=== PATIENT | male | born 1975 | race Caucasian/White ===

== ENCOUNTER 2018-07-29 15:44 | Emergency (ER) | payer MEDICAID, OTHER ==
[~2018-07-29] VITALS: Ht 190.5 cm; Wt 66.7 kg
[2018-07-29 16:45] VITALS: BP 114/88
--- NOTE | 2018-07-29 16:45 | Diagnostic Imaging Report ---
Indication: Right wrist injury. 3 views of the right wrist show no fracture, dislocation or other acute abnormalities. Impression: Negative right wrist. Dictated by: Dictated on workstation # [id number]
--- NOTE | 2018-07-29 17:21 | ED Upper Extremity ---
General Chief Complaint: Upper Extremity Stated Complaint: R WRIST PAIN Nursing Triage Note: Was lifting an engine last night and later started having shooting pain in R wrist. Is more painful with movement. Has been wearing a wrist brace. Has not taken any pain medicine or used ice. Nursing Sepsis Screen: No Definite Risk Source: patient Exam Limitations: no limitations History of Present Illness Date Seen by Provider: Jul 29, 2018 Time Seen by Provider: 16:00 Initial Comments 42-year-old right-handed male presents with right wrist strain after lifting a heavy automobile engine yesterday. Patient does not report injury or pain complain at time lifting but states reports pain shortly thereafter with wrist supination and movement. Patient's pain wearing Velcro splint today with limited relief. No pain medication, ice or anti-inflammatories taken. No other acute symptoms or complaints. Onset: yesterday Pain/Injury Location: right wrist Method of Injury: twisted Modifying Factors: Improves With Immobilization Associated Symptoms: no motor weakness or loss of sensation Allergies and Home Medications Allergies Coded Allergies: No Known Drug Allergies (Unverified , 07/29/18) Patient Home Medication List Home Medication List Reviewed: Yes Review of Systems Constitutional: no symptoms reported Musculoskeletal: joint pain, joint swelling Past Hlbilpa-Cafpqb-Qigavc Hx Patient Social History Alcohol Use: Denies Use Recreational Drug Use: No Smoking Status: Current Everyday Smoker Recent Foreign Travel: No Contact w/Someone Who Travel: No Recent Infectious Disease Expo: No Recent Hopitalizations: No Physical Abuse: No Sexual Abuse: No Mistreated: No Seasonal Allergies Seasonal Allergies: No Past Medical History Surgeries: No Respiratory: Yes (possible emphysema) Emphysema Cardiac: No Neurological: No Genitourinary: No Gastrointestinal: No Musculoskeletal: Yes Chronic Back Pain Endocrine: No HEENT: No Cancer: No Psychosocial: No Integumentary: No Blood Disorders: No Adverse Reaction/Blood Tranf: No Physical Exam Vital Signs Vital Signs - First Documented 07/29/18 15:56 Temp 98.8 Pulse 80 Resp 14 B/P (MAP) 136/79 (98) Pulse Ox 99 Capillary Refill : Less Than 3 Seconds Height, Weight, BMI Height: 6'3.00" Weight: 147lbs. oz. [id number]; BMI Method:Stated General Appearance: WD/WN, no apparent distress, moderate distress, severe distress, cachetic, obese, thin, other HEENT: PERRL/EOMI, normal ENT inspection Neck: full range of motion Respiratory: normal breath sounds Wrist: No non-tender, No bone tenderness, No deformity; Yes limited ROM, Yes pain, Yes soft tissue tenderness (minimal swelling, tenderness noted over the ulnar aspect of the dorsum of right wrist. Pain reproduces with range of motion. No appreciated joint effusion and erythema warmth.), Yes swelling Neurologic/Psychiatric: No motor weakness Progress/Results/Core Measures Results/Orders My Orders Orders - JADEN GAVIN DO Wrist 3 View Right (07/29/18 16:01) Vital Signs/I&O 07/29/18 07/29/18 15:56 16:45 Temp 98.8 Pulse 80 81 Resp 14 14 B/P (MAP) 136/79 (98) 114/88 (97) Pulse Ox 99 99 Blood Pressure Mean: 97 Progress Progress Note : Time: 16:30 Progress Note No evidence of injury on x-ray. Recommend rest, ice, compression, and NSAIDs Initial ECG Impression Date: Jul 29, 2018 Diagnostic Imaging Diagonstic Imaging: Xray (right wrist: No acute disease per radiology report ) Departure Impression Primary Impression: Sprain of wrist, right Disposition: 01 HOME, SELF-CARE Condition: Improved Departure-Patient Inst. Patient Instructions: Wrist Sprain (DC) Add. Discharge Instructions: Wear wrist splint, apply ice for 30 minutes every 2-3 hours, take 600 mg of ibuprofen for pain 3 times daily. Avoid excessive hand and wrist use. Follow up with PCP in 5-7 days if symptoms persist. All discharge instructions reviewed with patient and/or family. Voiced understanding. JADEN GAVIN DO Jul 29, 2018 17:21
== END 2018-07-29 16:47 | disposition home or self-care (01) ==
LOC: ER FS 15:49
DX: S63.501A Unspecified sprain of right wrist, initial encounter (principal); J43.9 Emphysema, unspecified; F17.200 Nicotine dependence, unspecified, uncomplicated; X50.0XXA Overexertion from strenuous movement or load, initial encounter
CPT/HCPCS: 73110

== ENCOUNTER 2019-06-23 17:56 | Emergency (ER) | payer MEDICAID ==
[~2019-06-23] VITALS: Ht 187 cm; Wt 67.5 kg
--- NOTE | 2019-06-23 18:23 | ED Chest Pain ---
General Chief Complaint: General Problems/Pain Stated Complaint: CHEST/SHOULDER PAIN Nursing Triage Note: PT REPORTS HE HAS LEFT SHOULDER AND LEFT UPPER CHEST PAIN THAT STARTED ABOUT AN HOUR AND HALF AGO(1630) AFTER YELLING AT HIS KIDS. HE REPORTS HE THINKS HE MIGHT HAS SOME ANXIETY BECAUSE HE HAS HAD SIMILAR EPISODES IN THE PAST THAT USUALLY GO AWAY. 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 Nursing Sepsis Screen: No Definite Risk Source: patient History of Present Illness Date Seen by Provider: Jun 23, 2019 Time Seen by Provider: 18:07 Initial Comments 43 yo M presenting with left upper chest/shoulder pain that came on around 1630 tonight. He had an aching pain in that area. He had the pain come on after he had been yelling at his children. He had similar pains in middle of his chest from stress and anxiety in the past. However he has not had pain going up into his left shoulder and with this previously. He took an aspirin 325 mg strength 1. Since he had the pain in a different area than normal and was lasting longer than normal for him he came in to get checked out. He was worried that it might be something related to his heart. He is a smoker and does have some COPD but does not feel more short of breath than normal. He denies having any nausea or vomiting during this episode. He also has no diaphoresis. The pain is currently not present Allergies and Home Medications Allergies Coded Allergies: No Known Drug Allergies (Unverified , 07/29/18) Patient Home Medication List Home Medication List Reviewed: Yes Review of Systems Review of Systems Constitutional: No chills, No fever EENTM: No Symptoms Reported Respiratory: Cough (occasionally but not tonight), Shortness of Air (intermittent but none tonight) Cardiovascular: See HPI Gastrointestinal: Denies Nausea, Denies Vomiting Genitourinary: No Symptoms Reported Musculoskeletal: no symptoms reported Skin: no symptoms reported Psychiatric/Neurological: Denies Headache, Denies Numbness, Denies Paresthesia, Denies Tremors, Denies Weakness Past Trlewtc-Baioro-Ynidod Hx Past Med/Social Hx: Reviewed Nursing Past Med/Soc Hx Patient Social History Alcohol Use: Denies Use Recreational Drug Use: No Smoking Status: Current Everyday Smoker Type Used: Cigarettes 2nd Hand Smoke Exposure: No Recent Foreign Travel: No Contact w/Someone Who Travel: No Recent Infectious Disease Expo: No Recent Hopitalizations: No Physical Abuse: No Sexual Abuse: No Mistreated: No Fear: No Seasonal Allergies Seasonal Allergies: No Past Medical History Surgeries: No Respiratory: Yes (possible emphysema) COPD, Emphysema Cardiac: No Neurological: No Genitourinary: No Gastrointestinal: No Musculoskeletal: Yes Chronic Back Pain Endocrine: No HEENT: No Cancer: No Psychosocial: No Integumentary: No Blood Disorders: No Adverse Reaction/Blood Tranf: No Physical Exam Vital Signs Vital Signs - First Documented 06/23/19 17:58 Temp 35.5 Pulse 68 Resp 18 B/P (MAP) 156/83 (107) Pulse Ox 98 O2 Delivery Room Air Capillary Refill : Less Than 3 Seconds Height, Weight, BMI Height: 6'3.00" Weight: 147lbs. oz. 66.235518ie; 19.00 BMI Method:Stated General Appearance: No Apparent Distress, WD/WN HEENT: PERRL/EOMI, Pharynx Normal Neck: Full Range of Motion, Normal Inspection, Non Tender, Supple Respiratory: Chest Non Tender, Lungs Clear, Normal Breath Sounds, No Accessory Muscle Use, No Respiratory Distress Cardiovascular: Regular Rate, Rhythm, Normal Peripheral Pulses Gastrointestinal: No Pulsatile Mass, Non Tender, Soft Extremity: Normal Capillary Refill, Normal Inspection, Normal Range of Motion, No Calf Tenderness, No Pedal Edema Neurologic/Psychiatric: Alert, Oriented x3, No 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, Normal Mood/Affect, hold worker II-XII Norm as Tested Skin: Normal Color, Warm/Dry Progress/Results/Core Measures Results/Orders Lab Results Laboratory Tests Test 06/23/19 18:08 06/23/19 19:38 Range/Units White Blood Count 8.5 4.3-11.0 10^3/uL Red Blood Count 4.90 4.35-5.85 10^6/uL Hemoglobin 14.9 13.3-17.7 G/DL Hematocrit 44 40-54 % Mean Corpuscular Volume 90 80-99 FL Mean Corpuscular Hemoglobin 30 25-34 PG Mean Corpuscular Hemoglobin Concent 34 32-36 G/DL Red Cell Distribution Width 12.7 10.0-14.5 % Platelet Count 182 130-400 10^3/uL Mean Platelet Volume 9.9 7.4-10.4 FL Neutrophils (%) (Auto) 53 42-75 % Lymphocytes (%) (Auto) 35 12-44 % Monocytes (%) (Auto) 9 0-12 % Eosinophils (%) (Auto) 2 0-10 % Basophils (%) (Auto) 1 0-10 % Neutrophils # (Auto) 4.5 1.8-7.8 X 10^3 Lymphocytes # (Auto) 3.0 1.0-4.0 X 10^3 Monocytes # (Auto) 0.7 0.0-1.0 X 10^3 Eosinophils # (Auto) 0.2 0.0-0.3 10^3/uL Basophils # (Auto) 0.1 0.0-0.1 10^3/uL Prothrombin Time 12.8 12.2-14.7 SEC INR Comment 0.9 0.8-1.4 Activated Partial Thromboplast Time 28 24-35 SEC Sodium Level 141 135-145 MMOL/L Potassium Level 4.0 3.6-5.0 MMOL/L Chloride Level 101 98-107 MMOL/L Carbon Dioxide Level 29 21-32 MMOL/L Anion Gap 11 5-14 MMOL/L Blood Urea Nitrogen 11 7-18 MG/DL Creatinine 1.21 0.60-1.30 MG/DL Estimat Glomerular Filtration Rate > 60 BUN/Creatinine Ratio 9 Glucose Level 99 70-105 MG/DL Calcium Level 9.6 8.5-10.1 MG/DL Corrected Calcium 9.3 8.5-10.1 MG/DL Magnesium Level 1.8 1.6-2.4 MG/DL Total Bilirubin 0.2 0.1-1.0 MG/DL Aspartate Amino Transf (AST/SGOT) 27 5-34 U/L Alanine Aminotransferase (ALT/SGPT) 30 0-55 U/L Alkaline Phosphatase 68 40-136 U/L Troponin I < 0.30 < 0.30 <0.30 NG/ML Pro-B-Type Natriuretic Peptide 44.0 <75.0 PG/ML Total Protein 7.2 6.4-8.2 GM/DL Albumin 4.4 3.2-4.5 GM/DL My Orders Orders - MALIK THORNTON MD Ekg Tracing (06/23/19 18:07) Cbc With Automated Diff (06/23/19 18:16) Magnesium (06/23/19 18:16) Comprehensive Metabolic Panel (06/23/19 18:16) Protime With Inr (06/23/19 18:16) Partial Thromboplastin Time (06/23/19 18:16) Monitor-Rhythm Ecg Trace Only (06/23/19 18:16) Ed Iv/Invasive Line Start (06/23/19 18:16) Troponin I Fs (06/23/19 18:16) Probnp Fs (06/23/19 18:16) Chest Pa/Lat (2 View) (06/23/19 18:16) Ekg Tracing (06/23/19 19:37) Troponin I Fs (06/23/19 19:37) Vital Signs/I&O 06/23/19 06/23/19 17:58 20:13 Temp 35.5 Pulse 68 85 Resp 18 16 B/P (MAP) 156/83 (107) 137/87 Pulse Ox 98 98 O2 Delivery Room Air Room Air Blood Pressure Mean: 107 Progress Progress Note #1: Progress Note check basic labs with cardiac enzymes and 2 view CXR with ECG. Progress Note #2: Progress Note CBC, Chemistry and coags are normal with out acute significant abnormality to account for his symptoms. He has clear CXR as well. His ECG has some upsloping of ST segments. Progress Note #3: Time: 19:30 Progress Note initial troponin is <0.3. will get a 2nd troponin and repeat ECG. Pt denies any more pain while waiting on tests. Repeat ECG still has upsloping ST segments for early repolarization changes. Progress Note #4: Time: 20:04 Progress Note Repeat troponin is still <0.3 so will discharge pt to home. Advised to check wit h clinic for continued concerns. Return for worsening pain/problems. Initial ECG Impression Date: Jun 23, 2019 Initial ECG Impression Time: 18:01 Initial ECG Rate: 77 Initial ECG Rhythm: Normal Sinus Initial ECG Comparisson: No Previous ECG Available Comment Normal sinus rhythm with a heart rate of 77 bpm. WV interval 157 ms. QT interval 364 ms and QTc interval 412 ms. There is no acute ST elevation. There is no prior tracing available for comparison. EKG : EKG Time: 19:37 Rate: 72 Rhythm: Normal Sinus Intervals: Normal ECG Comparisson: Unchanged ECG Impression: Normal Comment Normal sinus rhythm with a heart rate is 72 bpm. WV interval 160 ms. QT interval 391 ms and a QTc interval 428 ms. There is upsloping of the ST segment for early repolarization. Appears similar to tracing from arrival, 1801 Diagnostic Imaging Diagonstic Imaging: Xray Plain Films/CT/US/NM/MRI: chest Comments NAME: BREANNE TOLLIVER [facility] REC#: [id number] PT STATUS: REG ER : 1975 PHYSICIAN: MALIK THORNTON MD ADMIT DATE: 06/23/19/ER FS Draft Date of Exam:06/23/19 CHEST PA/LAT (2 VIEW) Clinical indication: Patient has left shoulder and left upper chest pain. Exam: Chest x-ray PA and lateral views. Comparisons: None. Findings: Lungs/pleura: Lungs are clear. There is no pneumothorax. There is no pleural effusion. Mediastinum: Unremarkable. Pulmonary vasculature: Unremarkable. Heart: Unremarkable. Bones/extrathoracic soft tissue: Unremarkable. Impression: There is no radiographic evidence of acute cardiopulmonary process. Dictated on workstation # [id number] Dict: 06/23/19 1840 Trans: 06/23/19 184 [facility] [id number] Interpreted by: MARIE GUADARRAMA MD Electronically signed by: Departure Impression Primary Impression: Non-cardiac chest pain Disposition: HOME, SELF-CARE Condition: Stable Departure-Patient Inst. Decision time for Depature: 20:09 Referrals: DALY VALENZUELA MD (PCP/Family) Primary Care Physician Patient Instructions: Chest Pain (DC), Chest Pain That Is Not Caused by the Heart (DC) Add. Discharge Instructions: Check with primary doctor in clinic for continued symptoms/concerns. Your tests tonight came back looking ok and do not show signs of a heart attack. All discharge instructions reviewed with patient and/or family. Voiced understanding. MALIK THORNTON MD Jun 23, 2019 18:22
[2019-06-23 18:25] LABS: BASOPHILS # (AUTO) 0.1 10^3/uL (0.0-0.1); BASOPHILS % (AUTO) 1 % (0-10); EOSINOPHILS # (AUTO) 0.2 10^3/uL (0.0-0.3); EOSINOPHILS % (AUTO) 2 % (0-10); HEMATOCRIT 44 % (40-54); HEMOGLOBIN 14.9 G/DL (13.3-17.7); LYMPHOCYTES % (AUTO) 35 % (12-44); MEAN CORPUSCULAR HEMOGLOBIN 30 PG (25-34); MEAN CORPUSCULAR HGB CONC 34 G/DL (32-36); MEAN CORPUSCULAR VOLUME 90 FL (80-99); MEAN PLATELET VOLUME 9.9 FL (7.4-10.4); MONOCYTES # (AUTO) 0.7 X 10^3 (0.0-1.0); MONOCYTES % (AUTO) 9 % (0-12); NEUTROPHILS # (AUTO) 4.5 X 10^3 (1.8-7.8); NEUTROPHILS % (AUTO) 53 % (42-75); PLATELET COUNT 182 10^3/uL (130-400); RED CELL DISTRIBUTION WIDTH 12.7 % (10.0-14.5); WHITE BLOOD COUNT 8.5 10^3/uL (4.3-11.0)
[2019-06-23 18:33] LABS: INR 0.9 (0.8-1.4); PROTHROMBIN TIME PATIENT 12.8 SEC (12.2-14.7)
--- NOTE | 2019-06-23 18:42 | Diagnostic Imaging Report ---
Clinical indication: Patient has left shoulder and left upper chest pain. Exam: Chest x-ray PA and lateral views. Comparisons: None. Findings: Lungs/pleura: Lungs are clear. There is no pneumothorax. There is no pleural effusion. Mediastinum: Unremarkable. Pulmonary vasculature: Unremarkable. Heart: Unremarkable. Bones/extrathoracic soft tissue: Unremarkable. Impression: There is no radiographic evidence of acute cardiopulmonary process. Dictated by: Dictated on workstation # [id number]
[2019-06-23 18:43] LABS: CARBON DIOXIDE 29 MMOL/L (21-32); CHLORIDE 101 MMOL/L (98-107); SODIUM 141 MMOL/L (135-145)
[2019-06-23 18:44] LABS: ALANINE AMINOTRANSFERASE 30 U/L (0-55); ALBUMIN 4.4 GM/DL (3.2-4.5); ALKALINE PHOSPHATASE 68 U/L (40-136); BILIRUBIN,TOTAL 0.2 MG/DL (0.1-1.0); BUN/CREATININE RATIO 9; CALCIUM 9.6 MG/DL (8.5-10.1); CREATININE SERUM 1.21 MG/DL (0.60-1.30); GFR ESTIMATED > 60; GLUCOSE 99 MG/DL (70-105); MAGNESIUM 1.8 MG/DL (1.6-2.4); TOTAL PROTEIN 7.2 GM/DL (6.4-8.2)
[2019-06-23 20:13] VITALS: BP 137/87
== END 2019-06-23 20:19 | disposition home or self-care (01) ==
LOC: EDUNIT# 17:56 → ER FS 17:58
DX: R07.89 Other chest pain (principal); J43.9 Emphysema, unspecified; F17.210 Nicotine dependence, cigarettes, uncomplicated
CPT/HCPCS: 36415; 71046; 80053; 83735; 83880; 84484; 85025; 85610; 85730; 93005; 93041

== ENCOUNTER 2020-11-29 13:39 | Emergency (ER) | payer MEDICAID ==
[~2020-11-29] VITALS: Ht 190 cm; Wt 67.0 kg
[2020-11-29 13:43] VITALS: BP 139/81
[2020-11-29 13:57] LABS: HEMATOCRIT 43 % (40-54); HEMOGLOBIN 15.2 G/DL (13.3-17.7); LYMPHOCYTES % (AUTO) 27 % (12-44); MEAN CORPUSCULAR HEMOGLOBIN 32 PG (25-34); MEAN CORPUSCULAR HGB CONC 35 G/DL (32-36); MEAN CORPUSCULAR VOLUME 89 FL (80-99); MEAN PLATELET VOLUME 9.8 FL (7.4-10.4); MONOCYTES % (AUTO) 6 % (0-12); NEUTROPHILS % (AUTO) 65 % (42-75); PLATELET COUNT 172 10^3/uL (130-400); WHITE BLOOD COUNT 6.4 10^3/uL (4.3-11.0)
[2020-11-29 13:58] LABS: BASOPHILS % (AUTO) 1 % (0-10); EOSINOPHILS # (AUTO) 0.1 10^3/uL (0.0-0.3); EOSINOPHILS % (AUTO) 1 % (0-10); LYMPHOCYTES # (AUTO) 1.7 X 10^3 (1.0-4.0); MONOCYTES # (AUTO) 0.4 X 10^3 (0.0-1.0); NEUTROPHILS # (AUTO) 4.1 X 10^3 (1.8-7.8)
--- NOTE | 2020-11-29 14:07 | Diagnostic Imaging Report ---
INDICATION: Chest pain. Time of exam 1:41 p.m. Comparison is made with prior chest from 06/23/2019. Lungs are hyperinflated. No infiltrates are seen. There is no effusion or pneumothorax. The heart size is normal. IMPRESSION: Hyperinflation. No other significant abnormality is detected. Dictated by: Dictated on workstation # [id number]
--- NOTE | 2020-11-29 14:11 | ED Chest Pain ---
General Chief Complaint: Chest Wall Stated Complaint: ABN EKG Nursing Triage Note: REPORTS WHILE CLINBING A LADDER THIS AM AFTER PAINTING ABLVE HIS HEAD FOR SEVERAL HOURS, HIS LEFT ARM STARTED DRINKING. HE REPORTS HE DRINKS A LOT OF MONSTER ENERGY DRINKS. HE TOOK 4 BABY ASPIRIN 81MG EACH AT 1130. DENIES ANY PAIN AT THIS TIME. HE WENT TO URGENT CARE THEY DID AN EKG AND SENT HIME HERE, Nursing Sepsis Screen: No Definite Risk Exam Limitations: no limitations History of Present Illness Date Seen by Provider: Nov 29, 2020 Time Seen by Provider: 13:50 Initial Comments Patient is a 45-year-old right-handed male who presents with multiple medical complaints. Patient was evaluated by his PCP earlier today for dizziness going up and down ladders. 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 Additionally he has been lifting heavy paint buckets. This morning when lifting a heavy paint bucket he noted tingling in his left hand. Patient was reports reproducible left shoulder and trapezius neck pain on his left side. Patient was diagnosed with otitis media and left trapezius muscle sprain. He was given an injection. Prior to leaving the office an EKG was obtained which showed early repolarization. Patient's provider was concerned about potentially abnormal EKG recommended the patient to the ED for further evaluation. Patient denies chest pain palpitations, shortness of breath. Denies exertional symptoms other than dyspnea when climbing a ladder. Denies abdominal pain. No nausea vomiting or sweats. No leg pain or swelling. No history of DVT or PE. Cardiac risk factors include smoking. Patient is a nondrinker. Timing/Duration: 1-3 hours Severity/Quality: moderate Location: shoulder Radiation: other Activities at Onset: other Prior CP/Workup: other Modifying Factors: improves with other Allergies and Home Medications Allergies Coded Allergies: No Known Drug Allergies (Unverified , 07/29/18) Patient Home Medication List Home Medication List Reviewed: Yes Review of Systems Review of Systems Constitutional: see HPI EENTM: See HPI Cardiovascular: See HPI Gastrointestinal: See HPI Genitourinary: See HPI Musculoskeletal: back pain Skin: see HPI Psychiatric/Neurological: See HPI Endocrine: See HPI Hematologic/Lymphatic: See HPI All Other Systems Reviewed Negative Unless Noted: Yes Past Pnijxkg-Uvkxfc-Dmumvk Hx Past Med/Social Hx: Reviewed Nursing Past Med/Soc Hx Patient Social History Alcohol Use: Denies Use Smoking Status: Current Everyday Smoker Type Used: Cigarettes 2nd Hand Smoke Exposure: No Recent Infectious Disease Expo: No Recent Hopitalizations: No Seasonal Allergies Seasonal Allergies: No Past Medical History Surgeries: No Respiratory: Yes (possible emphysema) COPD, Emphysema Cardiac: No Neurological: No Genitourinary: No Gastrointestinal: No Musculoskeletal: Yes Chronic Back Pain Endocrine: No HEENT: No Cancer: No Psychosocial: No Integumentary: No Blood Disorders: No Adverse Reaction/Blood Tranf: No Physical Exam Vital Signs Vital Signs - First Documented 11/29/20 13:43 Temp 36.6 Pulse 61 Resp 18 B/P (MAP) 139/81 (100) Pulse Ox 99 O2 Delivery Room Air Capillary Refill : Less Than 3 Seconds Height, Weight, BMI Height: 6'3.00" Weight: 147lbs. oz. 66.580370nr; 18.00 BMI Method:Stated General Appearance: No Apparent Distress, WD/WN, Anxious HEENT: PERRL/EOMI, Pharynx Normal, Other Neck: Full Range of Motion, Supple (Poor dentition), Other (Left paravertebral cervical muscle pain tenderness/trapezius spasm) Respiratory: Chest Non Tender, Lungs Clear Cardiovascular: Regular Rate, Rhythm Gastrointestinal: Soft Extremity: Non Tender, No Calf Tenderness Neurologic/Psychiatric: Alert Skin: Normal Color, Warm/Dry Lymphatic: No Adenopathy Focused Exam Sepsis Stage: Ruled Out Progress/Results/Core Measures Results/Orders Lab Results Laboratory Tests Test 11/29/20 13:44 Range/Units White Blood Count 6.4 4.3-11.0 10^3/uL Red Blood Count 4.82 4.35-5.85 10^6/uL Hemoglobin 15.2 13.3-17.7 G/DL Hematocrit 43 40-54 % Mean Corpuscular Volume 89 80-99 FL Mean Corpuscular Hemoglobin 32 25-34 PG Mean Corpuscular Hemoglobin Concent 35 32-36 G/DL Red Cell Distribution Width 12.0 10.0-14.5 % Platelet Count 172 130-400 10^3/uL Mean Platelet Volume 9.8 7.4-10.4 FL Immature Granulocyte % (Auto) 0 % Neutrophils (%) (Auto) 65 42-75 % Lymphocytes (%) (Auto) 27 12-44 % Monocytes (%) (Auto) 6 0-12 % Eosinophils (%) (Auto) 1 0-10 % Basophils (%) (Auto) 1 0-10 % Neutrophils # (Auto) 4.1 1.8-7.8 X 10^3 Lymphocytes # (Auto) 1.7 1.0-4.0 X 10^3 Monocytes # (Auto) 0.4 0.0-1.0 X 10^3 Eosinophils # (Auto) 0.1 0.0-0.3 10^3/uL Basophils # (Auto) 0.0 0.0-0.1 10^3/uL Immature Granulocyte # (Auto) 0.0 0.0-0.1 10^3/uL Sodium Level 143 135-145 MMOL/L Potassium Level 4.1 3.6-5.0 MMOL/L Chloride Level 104 98-107 MMOL/L Carbon Dioxide Level 28 21-32 MMOL/L Anion Gap 11 5-14 MMOL/L Blood Urea Nitrogen 13 7-18 MG/DL Creatinine 1.25 0.60-1.30 MG/DL Estimat Glomerular Filtration Rate > 60 BUN/Creatinine Ratio 10 Glucose Level 99 70-105 MG/DL Calcium Level 9.4 8.5-10.1 MG/DL Corrected Calcium 8.5-10.1 MG/DL Total Bilirubin 0.5 0.1-1.0 MG/DL Aspartate Amino Transf (AST/SGOT) 19 5-34 U/L Alanine Aminotransferase (ALT/SGPT) 15 0-55 U/L Alkaline Phosphatase 70 40-136 U/L Troponin I < 0.30 <0.30 NG/ML Total Protein 7.3 6.4-8.2 GM/DL Albumin 4.8 H 3.2-4.5 GM/DL My Orders Orders - JADEN GAVIN DO Cbc With Automated Diff (11/29/20 13:49) Comprehensive Metabolic Panel (11/29/20 13:49) Troponin I Fs (11/29/20 13:49) Ekg Tracing (11/29/20 13:49) Chest 1 View Ap/Pa Only (11/29/20 13:49) Vital Signs/I&O 11/29/20 13:43 Temp 36.6 Pulse 61 Resp 18 B/P (MAP) 139/81 (100) Pulse Ox 99 O2 Delivery Room Air Blood Pressure Mean: 100 Departure Communication (Admissions) Chest x-ray: No acute cardiopulmonary disease. EKG: Sinus rhythm, rate 65, left atrial enlargement, ST elevation consistent with early repolarization. Normal [place], QRS, QTc intervals. Patient with reproducible left shoulder pain and tingling in left hand. No chest pain palpitation shortness of breath or exertional symptoms. Patient does report does only when climbing ladders but diagnosed with otitis media by his PCP. EKG, lab performed and reassuring. Heart score is 1. Dissipate discharge with instructions to follow-up with PCP, lifestyle modification and smoking cessation. Return precautions reviewed. Patient verbalizes understanding agreement discharge instructions prior to departure. Impression Primary Impression: Trapezius muscle spasm Additional Impression: Dizziness Disposition: 01 HOME, SELF-CARE Condition: Stable Departure-Patient Inst. Referrals: SELFDALY MD (PCP/Family) Primary Care Physician JADEN GAVIN DO Nov 29, 2020 14:11
[2020-11-29 14:18] LABS: POTASSIUM 4.1 MMOL/L (3.6-5.0); SODIUM 143 MMOL/L (135-145)
[2020-11-29 14:19] LABS: ALANINE AMINOTRANSFERASE 15 U/L (0-55); ALBUMIN 4.8 GM/DL (3.2-4.5); ALKALINE PHOSPHATASE 70 U/L (40-136); BILIRUBIN,TOTAL 0.5 MG/DL (0.1-1.0); BUN/CREATININE RATIO 10; CALCIUM 9.4 MG/DL (8.5-10.1); CARBON DIOXIDE 28 MMOL/L (21-32); CHLORIDE 104 MMOL/L (98-107); CREATININE SERUM 1.25 MG/DL (0.60-1.30); GFR ESTIMATED > 60; GLUCOSE 99 MG/DL (70-105); TOTAL PROTEIN 7.3 GM/DL (6.4-8.2)
== END 2020-11-29 14:30 | disposition home or self-care (01) ==
LOC: EDUNIT# 13:39 → ER FS 13:40
DX: M62.838 Other muscle spasm (principal); R42 Dizziness and giddiness; J44.9 Chronic obstructive pulmonary disease, unspecified; F17.210 Nicotine dependence, cigarettes, uncomplicated
CPT/HCPCS: 36415; 71045; 80053; 84484; 85025; 93005

== ENCOUNTER → 2020-12-06 | Outpatient (CLI) | payer SELFPAY ==
--- NOTE | 2020-12-06 14:11 | Diagnostic Imaging Report ---
Indication: Shortness of breath and chest pain and dizziness. CT cardiac calcium scoring study performed with CT images of the cardiac silhouette and reconstructions for cardiac calcium scoring. Visualized portions of the lung berry are unremarkable, the entirety of the lungs are not included on the study. The mediastinum shows no adenopathy. There is no gross pleural fluid. Aorta is not aneurysmal. There are no significant coronary calcifications. Coronary calcium score was 0. IMPRESSION: CT cardiac calcium score of 0, no significant calcified plaque. No other incidental finding. Dictated by: Dictated on workstation # [id number]
== END ==
LOC: RAD FS 10:37
PROVIDERS: ATTEND Family Medicine
DX: R06.02 Shortness of breath (principal); R53.83 Other fatigue
CPT/HCPCS: 75571

== ENCOUNTER 2021-11-11 22:57 | Emergency (ER) | payer MEDICAID ==
--- NOTE | 2021-11-11 23:21 | ED General ---
General Chief Complaint: General Problems/Pain Stated Complaint: POSS ALLERGIC REACTION,ANXIOUS Source of Information: Patient, Old Records History of Present Illness Date Seen by Provider: Nov 11, 2021 Time Seen by Provider: 22:59 Initial Comments 46-year-old male presenting with complaints of feeling anxious and having a sensation of burning all over his body that lasted about 30 minutes. He was unsure if he was having an allergic reaction to his new medicines. They recently started him on Prozac or fluoxetine and medicine for stomach acid. He was having pain in his chest going into the left arm. He states he has had that before and they told him it was a heart attack it was just his anxiety. He denies having the burning sensation before tonight. He has no difficulty breathing, swallowing, abdominal pain, nausea, vomiting, shortness of breath, cough. Timing/Duration: 1 Hour Severity: Moderate Modifying Factors: worse with Medication (He felt that his new medicines had contributed to his reaction tonight) Associated Systoms: Chest Pain; No Cough, No Diaphoresis, No Fever/Chills; Headaches; No Loss of Appetite, No Malaise, No Nausea/Vomiting, No Rash, No Seizure, No Shortness of Air, No Syncope, No Weakness Allergies and Home Medications Allergies Coded Allergies: No Known Drug Allergies (Unverified , 07/29/18) Patient Home Medication List Home Medication List Reviewed: Yes Review of Systems Review of Systems Constitutional: No chills, No fever EENTM: nose congestion (Sinus pressure) Respiratory: no symptoms reported Cardiovascular: see HPI Gastrointestinal: no symptoms reported Genitourinary: no symptoms reported Musculoskeletal: no symptoms reported Skin: other (Generalized burning sensation that lasted about 30 minutes) Psychiatric/Neurological: Anxiety, Emotional Problems, Headache (Sinus frontal headache) Hematologic/Lymphatic: Denies Blood Clots, Denies Easy Bleeding, Denies Easy Bruising Past Wfzhyeu-Dgdrvg-Ykrote Hx Patient Social History Tobacco Use?: Yes Seasonal Allergies Seasonal Allergies: No Past Medical History Surgery/Hospitalization HX: Anxiety, GERD Surgeries: No Respiratory: Yes (possible emphysema) COPD, Emphysema Cardiac: No Neurological: No Genitourinary: No Gastrointestinal: No Musculoskeletal: Yes Chronic Back Pain Endocrine: No HEENT: No Cancer: No Psychosocial: No Integumentary: No Blood Disorders: No Adverse Reaction/Blood Tranf: No Physical Exam Vital Signs Vital Signs - First Documented 11/11/21 23:00 Temp 36.7 Pulse 78 Resp 18 B/P (MAP) 134/94 (107) Pulse Ox 100 O2 Delivery Room Air Capillary Refill : Height, Weight, BMI Height: 6'3.00" Weight: 147lbs. oz. 66.770430dn; 18.00 BMI Method:Stated General Appearance: No Apparent Distress, WD/WN HEENT: PERRL/EOMI, Moist Mucous Membranes, Other (Widespread dental decay) Neck: Full Range of Motion, Normal Inspection, Non Tender, Supple; No Carotid Bruit Respiratory: Chest Non Tender, Lungs Clear, Normal Breath Sounds, No Accessory Muscle Use, No Respiratory Distress Cardiovascular: Regular Rate, Rhythm, No Edema, No JVD, No Murmur, Normal Peripheral Pulses Gastrointestinal: Normal Bowel Sounds, No Pulsatile Mass, Non Tender, Soft Rectal: Deferred Back: No CVA Tenderness Extremity: Normal Capillary Refill, Normal Inspection, No Calf Tenderness, No Pedal Edema Neurologic/Psychiatric: Alert, Oriented x3, No 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, 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 as Tested Skin: Normal Color, Warm/Dry Progress/Results/Core Measures Suspected Sepsis SIRS Temperature: Pulse: Respiratory Rate: Laboratory Tests 11/11/21 23:12: White Blood Count 8.1 Blood Pressure / Mean: Laboratory Tests 11/11/21 23:12: Creatinine 1.33H, INR Comment 1.0, Platelet Count 164, Total Bilirubin 0.3 Results/Orders Lab Results Laboratory Tests Test 11/11/21 23:12 Range/Units White Blood Count 8.1 4.3-11.0 10^3/uL Red Blood Count 4.66 4.30-5.52 10^6/uL Hemoglobin 14.5 13.3-17.7 g/dL Hematocrit 41 40-54 % Mean Corpuscular Volume 87 80-99 fL Mean Corpuscular Hemoglobin 31 25-34 pg Mean Corpuscular Hemoglobin Concent 36 32-36 g/dL Red Cell Distribution Width 12.4 10.0-14.5 % Platelet Count 164 130-400 10^3/uL Mean Platelet Volume 10.0 9.0-12.2 fL Immature Granulocyte % (Auto) 0 % Neutrophils (%) (Auto) 49 42-75 % Lymphocytes (%) (Auto) 42 12-44 % Monocytes (%) (Auto) 7 0-12 % Eosinophils (%) (Auto) 2 0-10 % Basophils (%) (Auto) 1 0-10 % Neutrophils # (Auto) 3.9 1.8-7.8 10^3/uL Lymphocytes # (Auto) 3.4 1.0-4.0 10^3/uL Monocytes # (Auto) 0.5 0.0-1.0 10^3/uL Eosinophils # (Auto) 0.2 0.0-0.3 10^3/uL Basophils # (Auto) 0.0 0.0-0.1 10^3/uL Immature Granulocyte # (Auto) 0.0 0.0-0.1 10^3/uL Prothrombin Time 13.4 12.2-14.7 SEC INR Comment 1.0 0.8-1.4 Activated Partial Thromboplast Time 29 24-35 SEC Sodium Level 142 135-145 MMOL/L Potassium Level 3.9 3.6-5.0 MMOL/L Chloride Level 106 98-107 MMOL/L Carbon Dioxide Level 24 21-32 MMOL/L Anion Gap 12 5-14 MMOL/L Blood Urea Nitrogen 17 7-18 MG/DL Creatinine 1.33 H 0.60-1.30 MG/DL Estimat Glomerular Filtration Rate 68 BUN/Creatinine Ratio 13 Glucose Level 126 H 70-105 MG/DL Calcium Level 9.0 8.5-10.1 MG/DL Corrected Calcium 8.8 8.5-10.1 MG/DL Magnesium Level 1.8 1.6-2.4 MG/DL Total Bilirubin 0.3 0.1-1.0 MG/DL Aspartate Amino Transf (AST/SGOT) 13 5-34 U/L Alanine Aminotransferase (ALT/SGPT) 12 0-55 U/L Alkaline Phosphatase 63 40-136 U/L Myoglobin 22.0 10.0-92.0 NG/ML Troponin I < 0.30 <0.30 NG/ML Pro-B-Type Natriuretic Peptide 20.9 <75.0 PG/ML Total Protein 6.8 6.4-8.2 GM/DL Albumin 4.3 3.2-4.5 GM/DL Lipase 49 8-78 U/L My Orders Orders - MALIK THORNTON MD Cbc With Automated Diff (11/11/21 23:14) Magnesium (11/11/21 23:14) Chest 1 View Ap/Pa Only (11/11/21 23:14) Ekg Tracing (11/11/21 23:14) Comprehensive Metabolic Panel (11/11/21 23:14) Myoglobin Serum (11/11/21 23:14) Protime With Inr (11/11/21 23:14) Partial Thromboplastin Time (11/11/21 23:14) Lipase (11/11/21 23:14) Troponin I Fs (11/11/21 23:14) Probnp Fs (11/11/21 23:14) Vital Signs/I&O 11/11/21 23:00 Temp 36.7 Pulse 78 Resp 18 B/P (MAP) 134/94 (107) Pulse Ox 100 O2 Delivery Room Air Capillary Refill : Progress Note #1: Progress Note Reassured patient that his vital signs and exam all appear normal. I could not rule out that his new medicine was causing a reaction for him. Will check basic blood work and electrocardiogram with chest x-ray to look for any acute coronary syndrome or pneumonia or heart failure to be causing his symptoms Progress Note #2: Time: 23:29 Progress Note Electrocardiogram and chest x-ray appear stable without acute significant abnormality. They appear similar to prior tracings and images. Awaiting lab work to see if there is anything acute on his electrolytes or cardiac enzymes. Progress Note #3: Time: 00:09 Progress Note Labs are back and showed no acute significant abnormality on his CBC or chemistry. Negative cardiac enzymes. Reassured patient and advised to hold off on taking the fluoxetine until he can follow-up with the clinic and see if they want to continue the medicine or change him to something else. ECG Initial ECG Impression Date: Nov 11, 2021 Initial ECG Impression Time: 23:08 Initial ECG Rate: 70 Initial ECG Rhythm: Normal Sinus Initial ECG Comparisson: Unchanged Comment Normal sinus rhythm with a heart rate of 70 bpm. [place] interval [address] elevation. QT interval 366 ms with a QTc interval 387 ms. Overall this appears similar to prior tracings in the system. Diagnostic Imaging Diagonstic Imaging: Xray Plain Films/CT/US/NM/MRI: chest Comments On my review of the 1 view chest x-ray he has no acute process. There is no infiltrate or effusion. He has hyperextended lungs and the x-ray appears similar to prior images in the system Reviewed: Reviewed by Me Departure Impression Primary Impression: Non-cardiac chest pain Additional Impressions: Burning sensation of skin Anxiety about health Disposition: HOME, SELF-CARE Condition: Stable Departure-Patient Inst. Decision time for Depature: 00:10 Referrals: DALY VALENZUELA MD (PCP/Family) Primary Care Physician Patient Instructions: Anxiety, Adult ED, Chest Pain That Is Not Caused by the Heart (DC) Add. Discharge Instructions: Stay well-hydrated and drink plenty of fluids. Hold off on taking the MRI of the Prozac or fluoxetine until you can check with Dr. Valenzuela and the clinic about your medicines. Call in the morning to get a follow-up appointment about your medications and having to come to the Emergency Department All discharge instructions reviewed with patient and/or family. Voiced understanding. MALIK THORNTON MD Nov 11, 2021 23:21
[2021-11-11 23:26] LABS: BASOPHILS % (AUTO) 1 % (0-10); EOSINOPHILS # (AUTO) 0.2 10^3/uL (0.0-0.3); EOSINOPHILS % (AUTO) 2 % (0-10); HEMATOCRIT 41 % (40-54); HEMOGLOBIN 14.5 g/dL (13.3-17.7); LYMPHOCYTES # (AUTO) 3.4 10^3/uL (1.0-4.0); LYMPHOCYTES % (AUTO) 42 % (12-44); MEAN CORPUSCULAR HEMOGLOBIN 31 pg (25-34); MEAN CORPUSCULAR HGB CONC 36 g/dL (32-36); MEAN CORPUSCULAR VOLUME 87 fL (80-99); MONOCYTES # (AUTO) 0.5 10^3/uL (0.0-1.0); MONOCYTES % (AUTO) 7 % (0-12); NEUTROPHILS # (AUTO) 3.9 10^3/uL (1.8-7.8); NEUTROPHILS % (AUTO) 49 % (42-75); PLATELET COUNT 164 10^3/uL (130-400); WHITE BLOOD COUNT 8.1 10^3/uL (4.3-11.0)
[2021-11-11 23:34] LABS: PROTHROMBIN TIME PATIENT 13.4 SEC (12.2-14.7)
[2021-11-11 23:59] LABS: BILIRUBIN,TOTAL 0.3 MG/DL (0.1-1.0); CREATININE SERUM 1.33 MG/DL (0.60-1.30); MAGNESIUM 1.8 MG/DL (1.6-2.4); POTASSIUM 3.9 MMOL/L (3.6-5.0); TOTAL PROTEIN 6.8 GM/DL (6.4-8.2)
[2021-11-12] LABS: ALBUMIN 4.3 GM/DL (3.2-4.5)
[2021-11-12 00:17] VITALS: BP 134/94
--- NOTE | 2021-11-12 06:28 | Diagnostic Imaging Report ---
INDICATION: chest pain, anxiety. TECHNIQUE: Single view chest 11:22 PM. CORRELATION STUDY: 11/29/2020 FINDINGS: The heart size, mediastinal configuration and pulmonary vascularity are within normal limits. Lung berry are hyperinflated but clear. No effusion or pneumothorax. IMPRESSION: 1. Negative appearing single view chest. Hyperinflated lung berry. Dictated by: Dictated on workstation # [id number]
== END 2021-11-12 00:17 | disposition home or self-care (01) ==
LOC: EDUNIT# 22:57 → ER FS 22:58
DX: F41.1 Generalized anxiety disorder (principal); R07.89 Other chest pain; R20.8 Other disturbances of skin sensation
CPT/HCPCS: 36415; 71045; 80053; 83690; 83735; 83874; 83880; 84484; 85025; 85610; 85730; 93005

== ENCOUNTER 2021-11-26 16:14 | Emergency (ER) | payer MEDICAID ==
[~2021-11-26] VITALS: Ht 187 cm; Wt 66.0 kg
[2021-11-26 16:31] LABS: BASOPHILS % (AUTO) 0 % (0-10); EOSINOPHILS # (AUTO) 0.1 10^3/uL (0.0-0.3); EOSINOPHILS % (AUTO) 1 % (0-10); HEMATOCRIT 40 % (40-54); HEMOGLOBIN 14.4 g/dL (13.3-17.7); LYMPHOCYTES # (AUTO) 2.2 10^3/uL (1.0-4.0); LYMPHOCYTES % (AUTO) 32 % (12-44); MEAN CORPUSCULAR HEMOGLOBIN 31 pg (25-34); MEAN CORPUSCULAR HGB CONC 36 g/dL (32-36); MEAN CORPUSCULAR VOLUME 86 fL (80-99); MEAN PLATELET VOLUME 10.1 fL (9.0-12.2); MONOCYTES # (AUTO) 0.5 10^3/uL (0.0-1.0); MONOCYTES % (AUTO) 7 % (0-12); NEUTROPHILS % (AUTO) 59 % (42-75); PLATELET COUNT 157 10^3/uL (130-400); WHITE BLOOD COUNT 6.9 10^3/uL (4.3-11.0)
--- NOTE | 2021-11-26 16:31 | ED Chest Pain ---
General Chief Complaint: Chest Pain Stated Complaint: CP Nursing Triage Note: Pt reports chest pain in center of chest approx 15 min prior to arrival. Pt states he is pain free upon initial exam in ED room. Source: patient Exam Limitations: no limitations History of Present Illness Date Seen by Provider: Nov 26, 2021 Time Seen by Provider: 16:26 Initial Comments Patient is a 46-year-old presents with central chest pain started proximately 15 minutes prior to arrival while sitting on the couch. Patient has 2 episodes, symptoms are brief lasting 1 to 2 seconds. Patient has been pain-free since arrival in the ED. He reports wrestling with his 14-year-old son 3 days ago prior to symptoms. Denies nausea vomiting sweats, shortness of breath. Denies exertional chest pain palpitation shortness of breath or other anginal equivalents while at work. 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 No leg pain swelling. No history of DVT or PE. No other acute symptoms or complaints. Reports history of chronic anxiety. Patient is a current smoker. Timing/Duration: 1/2 hour Severity/Quality: mild Location: central Radiation: no radiation Activities at Onset: none Prior CP/Workup: no prior chest pain Allergies and Home Medications Allergies Coded Allergies: No Known Drug Allergies (Unverified , 07/29/18) Patient Home Medication List Home Medication List Reviewed: Yes Review of Systems Review of Systems Constitutional: see HPI EENTM: See HPI Respiratory: See HPI Cardiovascular: See HPI Gastrointestinal: See HPI Genitourinary: See HPI Musculoskeletal: see HPI Skin: see HPI Psychiatric/Neurological: See HPI, Anxiety Endocrine: See HPI Hematologic/Lymphatic: See HPI Past Wszwqnd-Kwtrze-Vnutxw Hx Seasonal Allergies Seasonal Allergies: No Past Medical History Surgery/Hospitalization HX: Anxiety, GERD Surgeries: No Respiratory: Yes (possible emphysema) COPD, Emphysema Cardiac: No Neurological: No Genitourinary: No Gastrointestinal: No Musculoskeletal: Yes Chronic Back Pain Endocrine: No HEENT: No Cancer: No Psychosocial: No Integumentary: No Blood Disorders: No Adverse Reaction/Blood Tranf: No Physical Exam Vital Signs Vital Signs - First Documented 11/26/21 16:23 Pulse 80 Resp 18 B/P (MAP) 140/86 (104) Pulse Ox 100 O2 Delivery Room Air Capillary Refill : Less Than 3 Seconds Height, Weight, BMI Height: 6'3.00" Weight: 147lbs. oz. 66.301590mc; 18.00 BMI Method:Stated General Appearance: No Apparent Distress, Anxious HEENT: Normal ENT Inspection, Pharynx Normal Neck: Full Range of Motion, Normal Inspection Respiratory: Lungs Clear, Normal Breath Sounds Cardiovascular: Regular Rate, Rhythm, No Edema Gastrointestinal: Non Tender, Soft Extremity: Non Tender, No Calf Tenderness Neurologic/Psychiatric: Alert, Oriented x3 Lymphatic: No Adenopathy Focused Exam Sepsis Stage: Ruled Out Progress/Results/Core Measures Results/Orders Lab Results Laboratory Tests Test 11/26/21 16:21 Range/Units White Blood Count 6.9 4.3-11.0 10^3/uL Red Blood Count 4.63 4.30-5.52 10^6/uL Hemoglobin 14.4 13.3-17.7 g/dL Hematocrit 40 40-54 % Mean Corpuscular Volume 86 80-99 fL Mean Corpuscular Hemoglobin 31 25-34 pg Mean Corpuscular Hemoglobin Concent 36 32-36 g/dL Red Cell Distribution Width 12.4 10.0-14.5 % Platelet Count 157 130-400 10^3/uL Mean Platelet Volume 10.1 9.0-12.2 fL Immature Granulocyte % (Auto) 0 % Neutrophils (%) (Auto) 59 42-75 % Lymphocytes (%) (Auto) 32 12-44 % Monocytes (%) (Auto) 7 0-12 % Eosinophils (%) (Auto) 1 0-10 % Basophils (%) (Auto) 0 0-10 % Neutrophils # (Auto) 4.0 1.8-7.8 10^3/uL Lymphocytes # (Auto) 2.2 1.0-4.0 10^3/uL Monocytes # (Auto) 0.5 0.0-1.0 10^3/uL Eosinophils # (Auto) 0.1 0.0-0.3 10^3/uL Basophils # (Auto) 0.0 0.0-0.1 10^3/uL Immature Granulocyte # (Auto) 0.0 0.0-0.1 10^3/uL Sodium Level 142 135-145 MMOL/L Potassium Level 4.1 3.6-5.0 MMOL/L Chloride Level 105 98-107 MMOL/L Carbon Dioxide Level 28 21-32 MMOL/L Anion Gap 9 5-14 MMOL/L Blood Urea Nitrogen 14 7-18 MG/DL Creatinine 1.32 H 0.60-1.30 MG/DL Estimat Glomerular Filtration Rate 68 BUN/Creatinine Ratio 11 Glucose Level 96 70-105 MG/DL Calcium Level 9.4 8.5-10.1 MG/DL Corrected Calcium 8.5-10.1 MG/DL Total Bilirubin 0.5 0.1-1.0 MG/DL Aspartate Amino Transf (AST/SGOT) 16 5-34 U/L Alanine Aminotransferase (ALT/SGPT) 14 0-55 U/L Alkaline Phosphatase 65 40-136 U/L Troponin I < 0.30 <0.30 NG/ML Total Protein 7.0 6.4-8.2 GM/DL Albumin 4.7 H 3.2-4.5 GM/DL My Orders Orders - JADEN GAVIN DO Cbc With Automated Diff (11/26/21 16:20) Comprehensive Metabolic Panel (11/26/21 16:20) Troponin I Fs (11/26/21 16:20) Ekg Tracing (11/26/21 16:20) Chest 1 View Ap/Pa Only (11/26/21 16:20) Ed Iv/Invasive Line Start (11/26/21 16:22) Vital Signs/I&O 11/26/21 11/26/21 11/26/21 11/26/21 16:23 16:45 17:24 17:28 Pulse 80 71 67 68 Resp 18 18 18 18 B/P (MAP) 140/86 (104) 125/81 126/89 131/86 Pulse Ox 100 99 100 99 O2 Delivery Room Air Room Air Room Air Room Air Blood Pressure Mean: 104 Departure Communication (Admissions) EKG: Normal sinus rhythm, no acute ST-T wave changes, RI, QTc, QRS intervals are normal. Chest x-ray: No acute cardiopulmonary disease. Atypical chest pain resolved prior to ED arrival. Patient likely with musculoskeletal pain with secondary anxiety response. Will obtain EKG lab with anticipated discharge with PCP follow-up if if patient remains asymptomatic and tests are reassuring. Return precautions to be discussed with patient prior to departure. Impression Primary Impression: Non-cardiac chest pain Additional Impression: Anxiety about health Disposition: 01 HOME, SELF-CARE Condition: Stable Departure-Patient Inst. Referrals: SELF,DALY RANGEL (PCP/Family) Primary Care Physician Patient Instructions: Anxiety, Adult ED, Chest Pain (DC) Add. Discharge Instructions: You were evaluated in the emergency department for chest pain. EKG lab and imaging were performed and are nondiagnostic. The exact cause of your symptoms has not been determined but is most consistent with musculoskeletal pain and anxiety. Please take ibuprofen 3 times daily and follow-up with your PCP in 2 to 3 days for reevaluation if symptoms persist. Avoid strenuous physical activity and heavy lifting. Return to the ED if new or worsening symptoms. All discharge instructions reviewed with patient and/or family. Voiced understanding. JADEN GAVIN DO Nov 26, 2021 16:31
--- NOTE | 2021-11-26 16:40 | Diagnostic Imaging Report ---
Indication: Chest pain Portable chest 4:32 PM Heart size and pulmonary vascularity are normal. Lungs are clear. There are no effusions or pneumothoraces. IMPRESSION: No acute abnormalities in the chest Dictated by: Dictated on workstation # [id number]
[2021-11-26 16:54] LABS: ALANINE AMINOTRANSFERASE 14 U/L (0-55); ALBUMIN 4.7 GM/DL (3.2-4.5); ALKALINE PHOSPHATASE 65 U/L (40-136); BILIRUBIN,TOTAL 0.5 MG/DL (0.1-1.0); BUN/CREATININE RATIO 11; CALCIUM 9.4 MG/DL (8.5-10.1); CARBON DIOXIDE 28 MMOL/L (21-32); CHLORIDE 105 MMOL/L (98-107); CREATININE SERUM 1.32 MG/DL (0.60-1.30); GFR ESTIMATED 68; GLUCOSE 96 MG/DL (70-105); POTASSIUM 4.1 MMOL/L (3.6-5.0); SODIUM 142 MMOL/L (135-145)
[2021-11-26 17:24] VITALS: BP 126/89
== END 2021-11-26 17:24 | disposition home or self-care (01) ==
LOC: EDUNIT# 16:14 → ER FS 16:16
DX: F41.9 Anxiety disorder, unspecified (principal); R07.89 Other chest pain; F17.200 Nicotine dependence, unspecified, uncomplicated
CPT/HCPCS: 36415; 71045; 80053; 84484; 85025; 93005

== ENCOUNTER 2022-06-15 16:52 | Emergency (ER) | payer MEDICAID ==
[~2022-06-15] VITALS: Ht 187.9 cm; Wt 66.0 kg
[2022-06-15] MEDS ORDERED: NS IV 1000 ML 1,000 ML IV STA (16:58)
[2022-06-15 17:03] LABS: BASOPHILS # (AUTO) 0.1 10^3/uL (0.0-0.1); BASOPHILS % (AUTO) 1 % (0-10); EOSINOPHILS # (AUTO) 0.2 10^3/uL (0.0-0.3); EOSINOPHILS % (AUTO) 2 % (0-10); HEMATOCRIT 41 % (40-54); LYMPHOCYTES # (AUTO) 3.2 10^3/uL (1.0-4.0); LYMPHOCYTES % (AUTO) 37 % (12-44); MEAN CORPUSCULAR HEMOGLOBIN 32 pg (25-34); MEAN CORPUSCULAR HGB CONC 36 g/dL (32-36); MEAN CORPUSCULAR VOLUME 87 fL (80-99); MEAN PLATELET VOLUME 9.5 fL (9.0-12.2); MONOCYTES # (AUTO) 0.7 10^3/uL (0.0-1.0); MONOCYTES % (AUTO) 8 % (0-12); NEUTROPHILS # (AUTO) 4.4 10^3/uL (1.8-7.8); NEUTROPHILS % (AUTO) 51 % (42-75); PLATELET COUNT 202 10^3/uL (130-400); WHITE BLOOD COUNT 8.6 10^3/uL (4.3-11.0)
[2022-06-15 17:07] LABS: BILIRUBIN,URINE NEGATIVE (NEGATIVE); CLARITY,URINE CLEAR; COLOR,URINE YELLOW; GLUCOSE, URINE (UA) NEGATIVE (NEGATIVE); KETONES,URINE NEGATIVE (NEGATIVE); LEUKOCYTE ESTERASE ,URINE NEGATIVE (NEGATIVE); NITRITE,URINE NEGATIVE (NEGATIVE); PH,URINE 7.5 (5-9); PROTEIN,URINE NEGATIVE (NEGATIVE)
[2022-06-15 17:09] LABS: BACTERIA,URINE TRACE /HPF
[2022-06-15 17:17] LABS: INR 0.9 (0.8-1.4); PROTHROMBIN TIME PATIENT 12.6 SEC (12.2-14.7)
[2022-06-15 17:24] LABS: BILIRUBIN,TOTAL 0.2 MG/DL (0.1-1.0); CALCIUM 9.6 MG/DL (8.5-10.1); CREATININE SERUM 1.25 MG/DL (0.60-1.30); MAGNESIUM 1.7 MG/DL (1.6-2.4); POTASSIUM 3.8 MMOL/L (3.6-5.0)
[2022-06-15 17:25] LABS: ALBUMIN 4.4 GM/DL (3.2-4.5)
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
[2022-06-15] MEDS ORDERED: ORPHENADRINE 60 MG/2 ML (NORFLEX) AMP (ED ONLY) IVP STA (17:47)
[2022-06-15] MEDS ORDERED: KETOROLAC 30 MG/ML VIAL IVP STA (17:47)
[2022-06-15 19:28] VITALS: BP 135/81
== END 2022-06-15 19:28 | disposition home or self-care (01) ==
LOC: EDUNIT# 16:52 → ER FS 16:53
DX: T75.4XXA Electrocution, initial encounter (principal); S46.811A Strain of other muscles, fascia and tendons at shoulder and upper arm level, right arm, initial encounter; S40.812A Abrasion of left upper arm, initial encounter; R82.1 Myoglobinuria; F17.210 Nicotine dependence, cigarettes, uncomplicated; Z28.310 Unvaccinated for COVID-19; W17.89XA Other fall from one level to another, initial encounter; W86.8XXA Exposure to other electric current, initial encounter; Y92.009 Unspecified place in unspecified non-institutional (private) residence as the place of occurrence of the external cause; Y93.89 Activity, other specified
CPT/HCPCS: 36415; 80053; 81000; 82550; 83735; 83874; 83880; 84484; 85025; 85610; 85730; 93005; 93041

== ENCOUNTER 2023-04-08 01:28 | Emergency (ER) | payer MEDICAID ==
[~2023-04-08] VITALS: Ht 187.9 cm; Wt 71.4 kg
--- NOTE | 2023-04-08 01:31 | ED General ---
General Stated Complaint: BACK PAIN|LEFT ARM PAIN|CHEST TIGHTNESS History of Present Illness Date Seen by Provider: Apr 08, 2023 Time Seen by Provider: 01:30 Initial Comments 47 yr M with PMH of Anxiety and GERD, is here with c/o chest burning for the past couple of days. Pt does not have any cardiac issues. Pt takes Tums and Gas- x for his GERD. Denies fever and chills, shortness of breath, palpitations, abdominal pain, nausea and vomiting, diarrhea. Patient does not have any cardiac history. Patient is a smoker and smokes half a pack of cigarettes a day. Denies drug abuse. Allergies and Home Medications Allergies Coded Allergies: No Known Drug Allergies (Unverified , 07/29/18) Patient Home Medication List Home Medication List Reviewed: Yes Review of Systems Review of Systems Constitutional: no symptoms reported, see HPI EENTM: no symptoms reported Respiratory: no symptoms reported Cardiovascular: no symptoms reported Past Gisottu-Obrsoz-Kzvdwl Hx Immunizations Up To Date First/Initial COVID19 Vaccinat: Denies Seasonal Allergies Seasonal Allergies: No Past Medical History Surgery/Hospitalization HX: Anxiety, GERD Surgeries: No Respiratory: Yes (possible emphysema) COPD, Emphysema Cardiac: No Neurological: No Genitourinary: No Gastrointestinal: No Musculoskeletal: Yes Chronic Back Pain Endocrine: No HEENT: No Cancer: No Psychosocial: No Integumentary: No Blood Disorders: No Adverse Reaction/Blood Tranf: No Physical Exam Vital Signs Vital Signs - First Documented 04/08/23 01:30 Temp 35.0 Pulse 77 Resp 16 B/P (MAP) 152/85 (107) Pulse Ox 100 O2 Delivery Room Air Capillary Refill : Height, Weight, BMI Height: 6'3.00" Weight: 147lbs. oz. [id number]; 18.00 BMI Method:Stated General Appearance: No Apparent Distress, Anxious HEENT: PERRL/EOMI Neck: Full Range of Motion Respiratory: Chest Non Tender, Lungs Clear, Normal Breath Sounds, No Accessory Muscle Use, No Respiratory Distress Cardiovascular: Regular Rate, Rhythm, No Edema, No Murmur Gastrointestinal: Soft Neurologic/Psychiatric: Alert, Oriented x3, No 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 Skin: Normal Color Progress/Results/Core Measures Suspected Sepsis SIRS Temperature: Pulse: Respiratory Rate: Laboratory Tests 04/08/23 01:40: White Blood Count 9.8 Blood Pressure / Mean: Laboratory Tests 04/08/23 01:40: Creatinine 1.29, Platelet Count 180, Total Bilirubin 0.3 Results/Orders Lab Results Laboratory Tests Test 04/08/23 01:40 04/08/23 02:05 Range/Units White Blood Count 9.8 4.3-11.0 10^3/uL Red Blood Count 4.93 4.30-5.52 10^6/uL Hemoglobin 15.4 13.3-17.7 g/dL Hematocrit 44 40-54 % Mean Corpuscular Volume 90 80-99 fL Mean Corpuscular Hemoglobin 31 25-34 pg Mean Corpuscular Hemoglobin Concent 35 32-36 g/dL Red Cell Distribution Width 12.2 10.0-14.5 % Platelet Count 180 130-400 10^3/uL Mean Platelet Volume 9.7 9.0-12.2 fL Immature Granulocyte % (Auto) 0 % Neutrophils (%) (Auto) 47 42-75 % Lymphocytes (%) (Auto) 41 12-44 % Monocytes (%) (Auto) 8 0-12 % Eosinophils (%) (Auto) 3 0-10 % Basophils (%) (Auto) 1 0-10 % Neutrophils # (Auto) 4.6 1.8-7.8 10^3/uL Lymphocytes # (Auto) 4.0 1.0-4.0 10^3/uL Monocytes # (Auto) 0.7 0.0-1.0 10^3/uL Eosinophils # (Auto) 0.3 0.0-0.3 10^3/uL Basophils # (Auto) 0.1 0.0-0.1 10^3/uL Immature Granulocyte # (Auto) 0.0 0.0-0.1 10^3/uL Sodium Level 141 135-145 MMOL/L Potassium Level 4.2 3.6-5.0 MMOL/L Chloride Level 102 98-107 MMOL/L Carbon Dioxide Level 28 21-32 MMOL/L Anion Gap 11 5-14 MMOL/L Blood Urea Nitrogen 15 7-18 MG/DL Creatinine 1.29 0.60-1.30 MG/DL Estimat Glomerular Filtration Rate 70 BUN/Creatinine Ratio 12 Glucose Level 104 70-105 MG/DL Calcium Level 9.7 8.5-10.1 MG/DL Corrected Calcium 9.3 8.5-10.1 MG/DL Total Bilirubin 0.3 0.1-1.0 MG/DL Aspartate Amino Transf (AST/SGOT) 17 5-34 U/L Alanine Aminotransferase (ALT/SGPT) 17 0-55 U/L Alkaline Phosphatase 70 40-136 U/L Troponin I < 0.30 <0.30 NG/ML Total Protein 7.0 6.4-8.2 GM/DL Albumin 4.5 3.2-4.5 GM/DL Urine Color YELLOW Urine Clarity CLEAR Urine pH 6.0 5-9 Urine Specific [place] 1.025 H 1.016-1.022 Urine Protein NEGATIVE NEGATIVE Urine Glucose (UA) NEGATIVE NEGATIVE Urine Ketones NEGATIVE NEGATIVE Urine Nitrite NEGATIVE NEGATIVE Urine Bilirubin NEGATIVE NEGATIVE Urine Urobilinogen 0.2 < = 1.0 MG/DL Urine Leukocyte Esterase NEGATIVE NEGATIVE Urine RBC (Auto) TRACE-I H NEGATIVE Urine RBC RARE /HPF Urine WBC 0-2 /HPF Urine Squamous Epithelial Cells RARE /HPF Urine Crystals NONE /LPF Urine Bacteria NEGATIVE /HPF Urine Casts PRESENT /LPF Urine Hyaline Casts RARE /LPF Urine Mucus LARGE H /LPF Urine Culture Indicated NO Urine Opiates Screen NEGATIVE NEGATIVE Urine Oxycodone Screen NEGATIVE NEGATIVE Urine Methadone Screen NEGATIVE NEGATIVE Urine Barbiturates Screen NEGATIVE NEGATIVE Ur Tricyclic Antidepressants Screen NEGATIVE NEGATIVE Urine Phencyclidine Screen NEGATIVE NEGATIVE Urine Amphetamines Screen NEGATIVE NEGATIVE Urine Methamphetamines Screen NEGATIVE NEGATIVE Urine Benzodiazepines Screen NEGATIVE NEGATIVE Urine Cocaine Screen NEGATIVE NEGATIVE Urine Cannabinoids Screen NEGATIVE NEGATIVE My Orders Orders - CATHIE SERNA MD Continuous Ekg Monitoring (04/08/23 01:32) Ekg Tracing (04/08/23 01:32) Cbc And Automated Diff (04/08/23 01:33) Comprehensive Metabolic Panel (04/08/23 01:33) Drug Screen Stat (Urine) (04/08/23 01:33) Ua Culture If Indicated (04/08/23 01:33) Troponin I Fs (04/08/23 01:33) Chest 1 View Ap/Pa Only (04/08/23 01:33) Lidocaine 2% Viscous 15 Ml (Xylocaine Vi (04/08/23 01:45) Antacid Suspension (Antacid Suspension (04/08/23 01:45) Famotidine Injection (Famotidine Injec (04/08/23 01:45) Famotidine Tablet (Famotidine Tablet) (04/08/23 01:43) Antacid Suspension (Antacid Suspension (04/08/23 01:43) Famotidine Injection (Famotidine Injec (04/08/23 01:46) Medications Given in ED Current Medications Medications Dose Ordered Sig/Gina Route Start Time Stop Time Status Last Admin Dose Admin Al Hydrox/Mg Hydrox/Simethicone 30 ml ONCE ONCE PO 04/08/23 01:45 04/08/23 01:46 DC 04/08/23 01:49 30 ML Lidocaine HCl 15 ml ONCE ONCE PO 04/08/23 01:45 04/08/23 01:46 DC 04/08/23 01:49 15 ML Vital Signs/I&O 04/08/23 01:30 Temp 35.0 Pulse 77 Resp 16 B/P (MAP) 152/85 (107) Pulse Ox 100 O2 Delivery Room Air Capillary Refill : Progress Note : Progress Note 1. ACS RULED OUT/ GERD EXACERBATION/ ANXIETY: - CXR: no acute findings - CBC/CMP: unremarkable - Troponin: undetected - UA/ UDS: negative - EKG: non-ischemic, NSR - Pepcid 20mg iv/ Mylanta/ Viscous lidocaine. Symptoms resolved wit this. - Pt cannot swallow pills. - Advised over the counter Maalox suspension to be taken for heartburn - Follow up with PCP within 7 to 10 days for follow up appointment. The patient was seen in the ED, and treated appropriately to presentation at a specific point in time. Patient is informed that there is a possibility that disease and illness can evolve and change in acuity rapidly or slowly after patient is discharged from the ER. Precautionary advice given to the patient for immediate return to ER if symptoms worsen or do not resolve, and to seek emergency care sooner rather than later. Pt also advised on the importance of PCP follow up and compliance with management and follow up plan with PCP and/or specialist, as this is part of the management plan. Pt verbally expressed understanding. ECG Initial ECG Impression Date: Apr 08, 2023 Initial ECG Impression Time: 01:35 Initial ECG Rate: 71 Initial ECG Rhythm: Normal Sinus Initial ECG Intervals: Normal Departure Impression Primary Impression: Ruled out for myocardial infarction Additional Impressions: Anxiety Gastroesophageal reflux Disposition: HOME, SELF-CARE Condition: Improved Departure-Patient Inst. Referrals: SELF,DALY RANGEL (PCP/Family) Primary Care Physician Patient Instructions: Acid reflux and gastroesophageal reflux disease in adults, Chest Pain That Is Not Caused by the Heart (DC), Anxiety, Adult (DC) Add. Discharge Instructions: - Advised over the counter Maalox suspension to be taken for heartburn - Follow up with PCP within 7 to 10 days for follow up appointment. CATHIE SERNA MD Apr 08, 2023 01:31
[2023-04-08] MEDS ORDERED: FAMOTIDINE 20 MG TABLET PO STA (01:36)
[2023-04-08] MEDS ORDERED: ANTACID SUSPENSION 30 ML UDC ONE (01:43)
[2023-04-08] MEDS ORDERED: FAMOTIDINE 20 MG TABLET ONE (01:43)
[2023-04-08] MEDS ORDERED: LIDOCAINE 2% VISCOUS 15 ML UDC PO ONE (01:45)
[2023-04-08] MEDS ORDERED: FAMOTIDINE INJ 20MG/2ML VIAL IV STA (01:45)
[2023-04-08] MEDS ORDERED: ANTACID SUSPENSION 30 ML UDC PO ONE (01:45)
[2023-04-08 01:46] LABS: BASOPHILS # (AUTO) 0.1 10^3/uL (0.0-0.1); BASOPHILS % (AUTO) 1 % (0-10); EOSINOPHILS # (AUTO) 0.3 10^3/uL (0.0-0.3); EOSINOPHILS % (AUTO) 3 % (0-10); HEMATOCRIT 44 % (40-54); HEMOGLOBIN 15.4 g/dL (13.3-17.7); LYMPHOCYTES % (AUTO) 41 % (12-44); MEAN CORPUSCULAR HEMOGLOBIN 31 pg (25-34); MEAN CORPUSCULAR HGB CONC 35 g/dL (32-36); MEAN CORPUSCULAR VOLUME 90 fL (80-99); MEAN PLATELET VOLUME 9.7 fL (9.0-12.2); MONOCYTES # (AUTO) 0.7 10^3/uL (0.0-1.0); MONOCYTES % (AUTO) 8 % (0-12); NEUTROPHILS # (AUTO) 4.6 10^3/uL (1.8-7.8); NEUTROPHILS % (AUTO) 47 % (42-75); PLATELET COUNT 180 10^3/uL (130-400); WHITE BLOOD COUNT 9.8 10^3/uL (4.3-11.0)
[2023-04-08] MEDS ORDERED: FAMOTIDINE INJ 20MG/2ML VIAL ONE (01:46)
[2023-04-08 02:07] LABS: POTASSIUM 4.2 MMOL/L (3.6-5.0)
[2023-04-08 02:14] LABS: BILIRUBIN,URINE NEGATIVE (NEGATIVE); CLARITY,URINE CLEAR; COLOR,URINE YELLOW; GLUCOSE, URINE (UA) NEGATIVE (NEGATIVE); KETONES,URINE NEGATIVE (NEGATIVE); LEUKOCYTE ESTERASE ,URINE NEGATIVE (NEGATIVE); NITRITE,URINE NEGATIVE (NEGATIVE); PROTEIN,URINE NEGATIVE (NEGATIVE)
[2023-04-08 02:26] LABS: BACTERIA,URINE NEGATIVE /HPF; HYALINE CASTS, URINE RARE /LPF; RBC,URINE RARE /HPF; SQUAMOUS EPITHELIAL CELL,UR RARE /HPF; WBC,URINE 0-2 /HPF
[2023-04-08 02:27] LABS: AMPHETAMINE SCREEN, URINE NEGATIVE (NEGATIVE); BARBITURATE SCREEN URINE NEGATIVE (NEGATIVE); CANNABINOID SCREEN, URINE NEGATIVE (NEGATIVE); COCAINE SCREEN URINE NEGATIVE (NEGATIVE); METHADONE STAT NEGATIVE (NEGATIVE); OPIATE SCREEN URINE NEGATIVE (NEGATIVE); OXYCODONE STAT NEGATIVE (NEGATIVE); TRICYCLIC ANTIDEPRESSANTS SCRE NEGATIVE (NEGATIVE)
[2023-04-08 02:29] LABS: ALANINE AMINOTRANSFERASE 17 U/L (0-55); ALKALINE PHOSPHATASE 70 U/L (40-136); BILIRUBIN,TOTAL 0.3 MG/DL (0.1-1.0); BUN/CREATININE RATIO 12; CALCIUM 9.7 MG/DL (8.5-10.1); CARBON DIOXIDE 28 MMOL/L (21-32); CHLORIDE 102 MMOL/L (98-107); CREATININE SERUM 1.29 MG/DL (0.60-1.30); GFR ESTIMATED 70; GLUCOSE 104 MG/DL (70-105); SODIUM 141 MMOL/L (135-145)
[2023-04-08 02:30] LABS: ALBUMIN 4.5 GM/DL (3.2-4.5)
[2023-04-08 02:49] VITALS: BP 124/87
[2023-04-08] MEDS ORDERED: FLUO20CA48 PO (03:08)
--- NOTE | 2023-04-08 05:55 | Diagnostic Imaging Report ---
INDICATION: Chest burning. Compared 11/26/2021 FINDINGS: Air trapping and COPD as chronic findings persist. The lungs clear. No failure, effusion or pneumothorax. IMPRESSION: Stable chest with clear hyperexpanded lungs. Dictated by: Dictated on workstation # [id number]
== END 2023-04-08 02:49 | disposition home or self-care (01) ==
LOC: EDUNIT# 01:28 → ER FS 01:30
DX: F41.9 Anxiety disorder, unspecified (principal); K21.9 Gastro-esophageal reflux disease without esophagitis; F17.210 Nicotine dependence, cigarettes, uncomplicated; Z79.899 Other long term (current) drug therapy
CPT/HCPCS: 36415; 71045; 80053; 80306; 81000; 84484; 85025; 93005